=== PATIENT | female | born 1975 | race Caucasian/White ===

== ENCOUNTER → 2020-07-27 15:21 | Outpatient (CLI) | payer OTHER, SELFPAY ==
--- NOTE | ~2020-07-27 | XR_ITS ---
EXAMINATION: XR chest 2V DATE: 07/27/2020 15:32 INDICATION: Cough and fever. TECHNIQUE: Frontal and lateral views of the chest were obtained. COMPARISON: Chest 2 views 03/10/2019 FINDINGS: There are patchy airspace opacities in all right lung zones and in left mid and lower lung zones with a peripheral predominance. No pleural effusion or pneumothorax. The heart size is normal. IMPRESSION: 1. Diffuse lung disease, most likely pneumonia such as COVID-19 pneumonia. Reviewed, dictated and finalized at location A.
== END ==
PROVIDERS: PCP Emergency Medicine; Visit Provider Emergency Medicine
DX: R05 Cough (principal); R50.9 Fever, unspecified; R91.8 Other nonspecific abnormal finding of lung field
CPT/HCPCS: 71046

== ENCOUNTER → 2020-08-10 09:34 | Outpatient (CLI) | payer OTHER, SELFPAY ==
--- NOTE | ~2020-08-10 | XR_ITS ---
EXAMINATION: XR chest 2V DATE: 08/10/2020 09:53 INDICATION: Cough, concern for COVID 19 pneumonia TECHNIQUE: PA and lateral views of the chest are obtained. COMPARISON: 07/17/2020 FINDINGS: There are persistent but decreased airspace opacities of the lung bases. Previously describ ed airspace opacities of the midlung zones and right upper lung zone have resolved. There is no pleur al effusion or pneumothorax. The cardiomediastinal silhouette is normal. There is mild thoracic spond ylosis. IMPRESSION: 1. Improving bilateral airspace opacities consistent with resolving pneumonia. Reviewed, dictated and finalized at location A.
== END ==
PROVIDERS: PCP Emergency Medicine; Visit Provider Emergency Medicine
DX: R05 Cough (principal); J18.9 Pneumonia, unspecified organism
CPT/HCPCS: 71046

== ENCOUNTER → 2020-09-17 12:11 | Outpatient (CLI) | payer OTHER, SELFPAY ==
--- NOTE | ~2020-09-17 | XR_ITS ---
EXAMINATION: XR chest 2V EXAM DATE: 09/17/2020 12:25 INDICATION: Recheck after a month. TECHNIQUE: Frontal and lateral projections of the chest obtained and reviewed. Comparison is made to prior examination from 08/10/2020. FINDINGS: The lungs are clear. There are no pleural effusions. The cardiomediastinal silhouette is within normal limits. There is no pneumothorax suspected. The bones and soft tissues are unremarkab le. IMPRESSION: Unremarkable chest x-ray exam. Reviewed, dictated and finalized at location A. 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
== END ==
PROVIDERS: PCP Emergency Medicine; Visit Provider Emergency Medicine
DX: U07.1 COVID-19 (principal)
CPT/HCPCS: 71046

== ENCOUNTER 2021-02-15 11:42 | Emergency (ER) | payer OTHER, SELFPAY ==
--- NOTE | ~2021-02-15 | XR_ITS ---
EXAMINATION: XR knee LT min 4V DATE: 02/15/2021 12:05 INDICATION: Left knee pain. TECHNIQUE: 5 views of left knee were obtained. COMPARISON: Left knee radiographs 03/25/2019 FINDINGS: Bone alignment is normal. No fracture. There is mild osteoarthritis of medial and patellofe moral compartments characterized by tiny marginal osteophytes. No knee joint effusion. IMPRESSION: 1. Mild left knee osteoarthritis. Reviewed, dictated and finalized at location B.
--- NOTE | 2021-02-15 11:45 | ED.LOWEXIN ---
HPI - Extremity Injury (Lower) General Chief Complaint: Extremity Injury, Lower Stated Complaint: L KNEE INJURY Time Seen by Provider: 02/15/21 11:45 Source: patient and RN notes reviewed History of Present Illness HPI Narrative: Patient is a 45-year-old female who presents the urgent care with complaints of left knee pain. Patient states that earlier this morning she tripped over a concrete parking block and fell onto her left knee. Patient denies hitting her head. Denies of any other injuries from the fall. Denies of any [id number] medication for pain relief. No other acute complaints. No acute distress noted. Patient aware of the plan of care. Some parts of this dictation were generated by voice recognition software and may contain typographical and/or grammatical inaccuracies. Related Data Home Medications Medication Instructions Recorded Confirmed lisinopril 02/15/21 metoprolol succinate PO 02/15/21 Allergies Allergy/AdvReac Type Severity Reaction Status Date / Time No Known Allergies Allergy Unverified 07/26/17 14:53 Review of Systems Review of Systems: Narrative: CONSTITUTIONAL: Denies fever, chills, or sweats. EYES: Denies visual changes, redness, or discharge. ENT: Denies rhinorrhea, congestion, sore throat, or otalgia. CARDIOVASCULAR: Denies chest pain, palpitations, or edema. RESPIRATORY: Denies cough or dyspnea. GASTROINTESTINAL: Denies abdominal pain, nausea, vomiting, or diarrhea. GENITOURINARY: Denies dysuria or hematuria. SKIN: Denies rash or itching. MUSCULOSKELETAL: Denies back pain, joint pain, or myalgia. NEUROLOGIC: Denies headache, numbness, or weakness. All other systems reviewed are negative, except as documented in HPI. [facility]LY [facility], [facility] Family History Family History (Updated 05/26/16 @ 23:21 by DOCTOR UNKNOWN) Mother Patient's mother is in good health, Onset Age: 64 Grandparent Family history of malignant neoplasm of brain, Onset Age: 72 Father Family history of coronary artery disease, Onset Age: 56 Other Family history of malignant neoplasm of ovary Social History Social History Smoking status: Never smoker Alcohol intake: never Comments At the time of my signature, I reviewed and agree with the nursing past medical, surgical, social, and family history. There is no relevant family history pertinent to the patient complaint. Exam Narrative: Exam Narrative: GENERAL: This is a well-nourished, well-developed patient, in no apparent distress. Morbidly obese HEAD: normocephalic, atraumatic. EYES: PERRL. Sclera clear/white. Vision is grossly intact. EARS: External ears normal NOSE: External nose normal with no obvious nasal discharge, nares without redness, no rhinorrhea. THROAT: Mucous membranes moist NECK: Neck supple SKIN: 2 cm circular superficial abrasion noted to the left knee. Warm, intact with no suspicious lesions or rash, good texture and turgor. NEURO: awake, alert, and oriented to person, place and time. There were no obvious focal neurologic abnormalities. EXTREMITIES: No obvious ecchymosis, edema or erythema noted to the left knee. Unable to do a complete range of motion exam due to morbid obesity. Complaints of pain with flexion and weightbearing. Course Vital Signs Vital signs: Vital Signs Temperature 98.7 F 02/15/21 12:07 Pulse Rate 83 02/15/21 12:07 Respiratory Rate 20 02/15/21 12:07 Blood Pressure 149/100 H 02/15/21 12:07 Pulse Oximetry 100 02/15/21 12:07 Temperature 98.7 F 02/15/21 12:07 Pulse Rate 83 02/15/21 12:07 Respiratory Rate 20 02/15/21 12:07 Blood Pressure 149/100 H 02/15/21 12:07 Pulse Oximetry 100 02/15/21 12:07 Reviewed-patient is informed that they may have pre-hypertension or hypertension based on a blood pressure reading in the department. I recommend the patient call the primary care provider listed on their discharge instructions or a physician of their choice this week to arrange fol
[2021-02-15 12:07] VITALS: BP 149/100; PULSE 83; RESP 20; TEMP 37.1; O2SAT 100
== END 2021-02-15 12:30 | disposition home or self-care (01) ==
PROVIDERS: Emergency Provider Nurse Practitioner Family; PCP Emergency Medicine
DX: S80.02XA Contusion of left knee, initial encounter (principal); W18.09XA Striking against other object with subsequent fall, initial encounter; I10 Essential (primary) hypertension
CPT/HCPCS: 73564; 99213; G0463

== ENCOUNTER 2022-02-16 09:23 | Emergency (ER) | payer OTHER, SELFPAY ==
--- NOTE | ~2022-02-16 | XR_ITS ---
EXAMINATION: XR heel LT min 2V DATE: 02/16/2022 09:58 INDICATION: Left heel pain. TECHNIQUE: 2 views of left calcaneus were obtained. COMPARISON: None. FINDINGS: Bone alignment is normal. No fracture. There is mild midfoot osteoarthritis. There are enth esophytes at the posterior and plantar aspects of calcaneal tuberosity. IMPRESSION: 1. No fracture. Reviewed, dictated and finalized at location B. IMPRESSION: 1. No fracture.
[2022-02-16 09:35] VITALS: BP 165/132; PULSE 91; RESP 20; TEMP 37.1; O2SAT 100
--- NOTE | 2022-02-16 09:44 | ED.LOWEXIN ---
HPI - Extremity Injury (Lower) General Chief Complaint: Extremity Injury, Lower Stated Complaint: Heel and shoulder Pain Time Seen by Provider: 02/16/22 09:40 Source: patient Mode of arrival: ambulatory Limitations: no limitations History of Present Illness HPI Narrative: Ms. Montaño is a 46-year-old female patient presented to the clinic today with complaints of chronic right shoulder pain and left heel pain. She reports her shoulder has been bothering her for a couple years as a previous orthopedic provider told her that she probably likely had a tendon tear in her right shoulder. She reports that the right shoulder pain is getting gradually worse especially with movement. She reports the pain is to the front and lateral shoulder and radiates down the arm. States the left heel pain just started 1 to 2 days ago has most pain only when walking. No pain with flexion or extension of the left plantar fascia. Reports her pain is a 7 out of 10 currently. Patient is morbidly obese and it was difficult to get an accurate blood pressure on her. Related Data Allergies Allergy/AdvReac Type Severity Reaction Status Date / Time No Known Allergies Allergy Unverified 02/16/22 09:52 Review of Systems Review of Systems: Pertinent positives per HPI. Patient denies any fever, chills, rash, headache, visual changes, dizziness, cough, runny nose, sore throat, shortness of breath, chest pain, palpitations, nausea, vomiting, diarrhea, constipation, abdominal pain, or any urinary issues. [facility] Family History Family History Mother Patient's mother is in good health, Onset Age: 64 Grandparent Family history of malignant neoplasm of brain, Onset Age: 72 Father Family history of coronary artery disease, Onset Age: 56 Other Family history of malignant neoplasm of ovary Social History Social History Smoking status: Never smoker Alcohol intake: never Comments At the time of my signature, I reviewed and agree with the nursing past medical, surgical, social, and family history. There is no relevant family history pertinent to the patient complaint. Exam Narrative: General: Well-developed, morbidly obese in no apparent distress Head: Normocephalic, atraumatic. Cardio: Regular rate and rhythm, s1 and s2 normal, no murmur appreciated. Resp: Clear to auscultation bilaterally, no rhonchi, rales, wheezing or rubs. Musculoskeletal: Right shoulder: No deformity, tender to palpation over the lateral and anterior shoulder joint, range of motion limited due to pain-is unable to left arm above head, negative drop arm test, pain with empty can and full can testing to the right lateral and anterior shoulder, peripheral pulse strong, no edema, no cyanosis. Left heel: No deformity, tender to palpation over the mid calcaneus, pain only when walking, limping gait and station Course Course Emergency Course: Portions of this record may have been created with voice recognition software. Level of Care: Express Care Visit Vital Signs Vital signs: Vital Signs Temperature 37.1 C 02/16/22 09:35 Pulse Rate 91 02/16/22 09:35 Respiratory Rate 20 02/16/22 09:35 Blood Pressure 165/132 H 02/16/22 09:35 Pulse Oximetry 100 02/16/22 09:35 Temperature 37.1 C 02/16/22 09:35 Pulse Rate 91 02/16/22 09:35 Respiratory Rate 20 02/16/22 09:35 Blood Pressure 165/132 H 02/16/22 09:35 Pulse Oximetry 100 02/16/22 09:35 Vital signs reviewed MDM - Extremity Injury (Lower) MDM Narrative Medical decision making narrative: At the time of assessment patient is resting comfortably in the chair. Having pain with radiation to the right shoulder as well as having pain to the left heel. X-ray was completed to the left heel to rule out a stress fracture and it was negative for any fracture or malalignment. Assessment shows probable
[2022-02-16] MEDS: KETOROLAC (*BKC) 60 MG/2 ML VIAL IM (09:59)
== END 2022-02-16 10:30 | disposition home or self-care (01) ==
PROVIDERS: Emergency Provider Nurse Practitioner Family
DX: M77.8 Other enthesopathies, not elsewhere classified (principal); M79.672 Pain in left foot; E66.01 Morbid (severe) obesity due to excess calories; Z68.44 Body mass index [BMI] 60.0-69.9, adult; I10 Essential (primary) hypertension; K21.9 Gastro-esophageal reflux disease without esophagitis
CPT/HCPCS: 73650; 96372; 99213; A4565; G0463; J1885

== ENCOUNTER 2022-03-21 07:54 | Outpatient (RCR) | payer OTHER, SELFPAY ==
[2022-03-21 08:05] VITALS: BP_SYST 115
--- NOTE | 2022-03-21 09:08 | PTOPEVAL ---
PHYSICAL THERAPY INITIAL EVALUATION. Thank you for referring Fay Montaño to [facility] The patient is scheduled to be seen for therapy? 1-2 x/week for 6 weeks. Please review, sign, date and return this plan of care ESSIE. I agree with and certify that the following plan of care is medically necessary. Referring Physician Date Attending Provider: Vidal Huntley APN *PT Outpatient Evaluation Start: 03/21/22 Evaluation Information Diagnosis R shoulder pain Onset chronic Subjective Information Pt reports chronic R shoulder Query Text:As Reported By Patient/ pain that fluctuates in Family severity over years. The last couple of months her pain has increased without a known reason. She reports the inability to sleep on her R side, raise her hand over her head, or using her arm for an extended period of time. She states she had to stop a take a break while trying to put her daughters hair up the other day. Self Report Pain Assessment Right Shoulder(s) Reported Pain Level 3 Pain Description Aching,Heavy,Throbbing Pain Radiation Right Elbow Pain Frequency Acute,Intermittent Lowest Pain Intensity 3 Greatest Pain Intensity 8 Pain Aggravating Factors Exercise/Activity,Lifting Upper Extremity Range of Motion Scapular/ Shoulder Range of Motion Right Scapular: Retraction Normal Shoulder Flexion - Active 90 Shoulder Flexion - Passive 108 Shoulder Abduction - Active 80 Shoulder Abduction - Passive 115 Shoulder Medial Rotation - Active T9 Shoulder Lateral Rotation - Active R upper trap Scapular/Shoulder Range of Motion L shoulder active flexion 130 Comments L shoulder passive flexion 140 L shoulder active abduction 130 L shoulder passive abduction 145 L shoulder functional medial and lateral rotation: T10, T4 Upper Extremity Muscle Strength Testing Gross Upper Extremity Strength Comments L UE grossly 4/5 Scapular/Shoulder Right Shoulder Flexion Strength 3 Fair Shoulder Abduction Strength 3 Fair Shoulder Medial Rotation Strength 3- Fair - Shoulder Lateral Rotation Strength 3- Fair - Shoulder Strength Comments R shoulder strength likely limited by pain. Facial grimaces before applied
--- NOTE | 2022-03-23 11:52 | PCPTNOTE ---
Patient called & cancelled scheduled appointment this date due to not feeling well.
--- NOTE | 2022-03-28 15:51 | PCPTNOTE ---
Patient called & cancelled scheduled appointment this date due to her car breaking down on the way here.
--- NOTE | 2022-04-03 17:09 | PCPTNOTE ---
Patient did not show up for scheduled appointment this date; Called to leave voicemail for patient unable to due to mailbox being full.
--- NOTE | 2022-04-05 16:54 | PCPTNOTE ---
Attending Provider: Vidal Huntley APN Patient:Fay Montaño Date of :1975 Patient has not returned for any further treatments since 03/21/2022. Patient?s initial visit was on 03/21/2022 and she has returned for a total of 0 visits. She has called and cancelled twice and no call, no showed the last two visit. Per the attendance policy, she will be discharged at this time. Thank you for referring this patient to [facility]. Please review, sign, date and return this discharge summary ESSIE. I have been updated about the patient's current status and I agree with discharge from the above service at this time. Referring Physician Date
--- NOTE | 2022-04-05 16:59 | PCPTNOTE ---
Patient did not show up for scheduled appointment this date; this is patient 3 cancel/no show per policy have notified PT, which patient will be discharged.
== END 2022-04-06 11:38 | disposition home or self-care (01) ==
LOC: ANHPT 07:54
PROVIDERS: PCP Family Medicine; Visit Provider Nurse Practitioner
DX: M25.511 Pain in right shoulder (principal)
CPT/HCPCS: 97110; 97161

== ENCOUNTER 2025-03-03 14:40 | Emergency (ER) | payer BC, SELFPAY ==
--- NOTE | ~2025-03-03 | CT_ITS ---
EXAMINATION: CT abdomen pelvis w con DATE: 03/03/2025 16:20 INDICATION: Left lower quadrant abdominal pain TECHNIQUE: Computed tomography (CT) of the abdomen and pelvis was performed with 100 mL Omnipaque-350 intravenous contrast. Automated exposure control and iterative reconstruction technique were employe d. The dose-length product was 1730.07 mGy-cm. COMPARISON: None FINDINGS: Mild minimal dependent bibasilar atelectasis.. Heart size is normal. No pericardial or pleural effusi on. Liver, gallbladder, spleen, pancreas, bilateral adrenal glands and kidneys are normal. There is m ild scattered diverticulosis with inflammatory stranding surrounding a diverticulum at the distal gabby cending colon consistent with diverticulitis. Small bowel and appendix are normal. Bladder, anteverte d uterus and bilateral adnexa are unremarkable. No abscess or free intraperineal gas or fluid. Modera te-sized fat-containing umbilical hernia. Moderate-sized fat-containing infraumbilical ventral hernia and small fat-containing supraumbilical ventral hernia positioned slightly to the right of midline. Small fat-containing left inguinal hernia. No pathologically enlarged abdominal or pelvic lymphadenop athy. Moderate lumbar and lower thoracic spondylosis with bridging osteophytes at multiple levels in the lower thoracic spine consistent with diffuse idiopathic skeletal hyperostosis (DISH). IMPRESSION: 1. Radiographically uncomplicated diverticulitis at the distal descending colon. 2. Moderate-sized fat-containing umbilical hernia, couple additional small and moderate-sized fat-con taining ventral hernias and small fat-containing left inguinal hernia. Reviewed, dictated and finalized at location A. IMPRESSION: 1. Radiographically uncomplicated diverticulitis at the distal descending colon . 2. Moderate-sized fat-containing umbilical hernia, couple additional small and moderate-sized fat-containing ventral hernias and small fat-containing left ing uinal hernia.
--- OUTSIDE RECORDS SUMMARY | 2025-03-03 14:43 | XMS_ITS | Referral Summary ---
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 Name Role Phone Addi Kemp MD Primary Care Provider [phone] Allergies No known active allergies Medications lisinopriL (PRINIVIL,ZESTRI L) 10 mg tablet Take 1 tablet by mouth daily 12/11/2019 Active metoprolol XL (TOPROL-XL) 25 mg 24 hr tablet Take 1 tablet by mouth daily 12/04/2019 Active Active Problems No known active problems Social History Tobacco Use Types Packs/Day Years Used Date Smoking Tobacco: Never Smokeless Tobacco: Never Alcohol Use Standard Drinks/Week Comments No 0 (1 standard drink = 0.6 oz pur e alcohol) Comments Unknown Sex and Gender Information Value Date Recorded Sex Assigned at Not on file Legal Sex Female 1:04 AM [employer] ANALYST Gender Identity Not on file Sexual Orientation Not on file Last Filed Vital Signs Vital Sign Reading Time Taken Comments Blood Pressure 110/64 12/24/2019 9:57 AM [employer] ANALYST Pulse 94 12/24/2019 9:57 AM [employer] ANALYST Temperature 36.6 C (97.9 F) 05/07/2016 12:39 PM CDT Respiratory Rate - - Oxygen Saturation 97% 12/24/2019 9:57 AM [employer] ANALYST Inhaled Oxygen Concentration - - Weight 171.9 kg (379 lb) 12/24/2019 9:57 AM [employer] ANALYST Height 162.6 cm (5' 4 ) 12/24/2019 9:57 AM [employer] ANALYST Body Mass Index 65.06 12/24/2019 9:57 AM [employer] ANALYST Plan of Treatment Not on file Insurance [employer] Care Teams Agricultural Aircraft Pilot Relationship Specialty Start Date End Date Addi Kemp MD PCP - General Emergency Medicine 12/24/19
--- OUTSIDE RECORDS SUMMARY | 2025-03-03 14:43 | XMS_ITS | Data Portability ---
Author Organization [facility] [place] Address [address] [place] [address] Care Team Providers Care Programmer Analyst Consultant Name Role Phone FRANK MEDINA Referring Provider [phone] Assessment Encounter Date Assessment Date Assessment LastModified by Organization Details LastModified Time 09/17/2020 09/17/2020 Annual gynecological exam performed. Patient will come back in a year unless there are new symptoms. [email or web address] Not available 09/17/2020 12:29:35 Plan of Treatment Reminders Order Date Submit Date Provider Last Modified By Organization Details Last Modified Time Details Appointments None record ed. Lab None record ed. Referral None record ed. Procedures None record ed. Surgeries None record ed. Imaging None record ed. Medication Orders None record ed. Patient TargetsNo targets recorded. Patient Instructions Encounter Date Encounter Id Patient Instructions Last Modified By Organization Details Last Modified Time 09/17/2020 [id number] [email or web address] Not available 12:56:50 Reason for Referral None Reported. Results Created Date Observation Date Name Description Value Unit Range Abnormal Flag Note LastModifiedBy Organization Detail LastModifiedTime 09/17/20 20 09/20/2020 pap, LB Pap test thin prep Negati ve for Intrae pithel ial Lesion or Malign coco normal ACCES ERNST #: [id number] Sourc e: Cervi felix/E ndoce rvica l LMP: 10/29 Date Taken : 09/17 Speci men Type: ThinP rep Vial Date Repor nilson: 09/20 Clini felix Data: Cytot ech: BEENA Lane( CP) Date Repor nilson: 09/20 Speci men Adequ acy: Satis facto ry for evalu ation Endoc ervic al/tr ansfo rmati on zone compo nent prese nt Gener al Categ oriza tion: NEGAT TIA FOR INTRA EPITH ELIAL SPENSER Rios OR DMITRI SPAULDING This speci men has been brianda zed by the ThinP rep Imagi ng Syste m, an inter activ e compu ter syste m which agnes ts the lab in the scree dg of ThinP rep Pap Test slide s. Follo wing imagi ng, the slide was revie wed by a Cytot echno logis t and/o r Patho logis t. D N A A S S A Y S R E P O R T TEST NAME RESUL TS ----- ---- ----- -- HPV High Risk Azael rios (TMA) ThinP rep Vial The human papil lomav irus (HPV) High Risk Azael rios is an FDA-a pprov ed in-vi tro ampli fied nucle ic acid test for the quali tativ e detec tion of E6/E7 viral mRNA. Resul ts dionicio d pratima corre lated with patie nt prese ntati on, histo ry, cervi felix cytol ogy and other clini felix and labor atory findi ngs. See https ://[employer]skills/s [place]/ ayaan lt/fi les/2 018-0 3/AW- 06842 _002_ 01.pd f for furth er infor matcorona n. Test perfo rmed by [facility], d/b/a [facility], [address] , [place] [address] , Gabrielle Griffiths ra, DO, Labor atory Direc tor. HPV High Risk *HPV NOT DETEC NILSON (TYPE S 16, 18, 31, 33, 35, 39, 45, 51, 52, 56, 58, 59, 66, 68) *HPV: The human papil lomav irus (HPV) High Risk Azael rios is an FDA-a pprov ed in-vi tro ampli fied nucle ic acid test for the quali tativ e detec tion of E6/E7 viral mRNA. Resul ts shoul d be corre lated with patie nt prese ntati on, histo ry, cervi felix cytol ogy and other clini felix and labor atory findi ngs. See https ://5skills/s [place]/ ayaan lt/fi les/2 018-0 3/AW- 66841 _002_ 01.pd f for jourdan er madier yo rios. Test [facility]fo rmed by [facility] [employer], [address], [place] [address] , Gabrielle Griffiths ra, DO, Labor atory Direc tor. End of Repor t Techn ical servi christina provi ded by [facility], [address] [place] [address] Ishan Vail MD, Labor ator Dire tor. Case revie wed and diagn osis rende red at [facility] d/b/a [facility], [address] [place] [address] Ishan Vail MD, Labor ator Dire tor. CONFI DENTI AL Not Available [facility] ([facility]) [facility] [address], [place], [address], 09/20/2020 13:59:49 09/17/20 20 09/20/2020 HPV DNA, high- risk HPV high risk NOT DETECT ED normal Not Available [facility] ([facility]) [address] [place] [address], [place], [address], 09/20/2020 13:59:49 Result Notes None recorded. Procedures Surgical History Date Name Laterality Status Provider Name and Address Organization Details Recorded Time Tonsillectomy completed [facility] 09/17/2020 12:31:58 Tubal Ligation completed [facility] 09/17/2020 12:32:02 Imaging Results None recorded. Procedure Notes None recorded. Medical Equipment None Reported. Allergies No known drug allergies Medications Name Sig Start Date Stop Date Status Note LastModified by Organization Details LastModified Time cyclobenzapri ne 10 mg tablet TK 1 T PO Q 8 HOURS. ANDI 09/17 completed Not Available Not Available Not Available cetirizine 10 mg tablet TK 1 T PO QD 09/17 completed Not Available Not Available Not Available azithromycin 250 mg tablet TK 2 TS PO FOR 1 DAY THEN TK 1 T PO D FOR 4 DAYS 09/17 completed Not Available Not Available Not Available ibuprofen 800 mg tablet TK 1 T PO Q 6 H WF 09/17 completed Not Available Not Available Not Available lisinopril 20 mg tablet TAKE 1 TABLET BY MOUTH DAILY active Not Available Not Available No t Available benzonatate 100 mg capsule TK 1 C PO Q 8 H PRN 09/17 completed Not Available Not Available Not Available lisinopril 10 mg tablet active Not Available Not Available No t Available metoprolol succinate ER 25 mg tablet,extend ed release 24 hr 09/17 completed Not Available Not Available Not Available albuterol sulfate HFA 90 mcg/actuation aerosol inhaler INL 2 PFS PO Q 6 H PRN 09/17 completed Not Available Not Available Not Available fluticasone propionate 50 mcg/actuation nasal spray,suspens ion SHAKE LQ AND U 1 SPR IEN BID 09/17 completed Not Available Not Available Not Available Toprol XL active Not Available Not Kayley ilable Not Available Vitals Date Recorded Body height Body mass index (BMI) Body weight Systolic blood pressure Diastolic blood pressure Provider Name and Address Organization Details Last Updated DateTime 09/17/2020 162.56 cm 66.9 kg/m2 178188.0 2 g 160 mm[Hg] 98 mm[Hg] Norma Marcano [facility] 0 12:38:03 Social History None recorded. Functional Status None recorded. Mental Status None recorded. Family History Relationship Description Onset Age of this Age Resolved Age Notes LastModified by Organization Details LastModified Time Mother Asthma [email or web address] Not available 12:31:06 Mother Heart disease [email or web address] Not available 2019 12:31:27 Mother Hypertensive disorder [email or web address] Not available 2019 12:31:45 Father Heart disease [email or web address] Not available 2019 12:31:27 Father Diabetes mellitus [email or web address] Not available 2019 12:31:34 Father Hypertensive disorder [email or web address] Not available 2019 12:31:45 Maternal Grandmother Heart disease [email or web address] Not available 2019 12:31:27 Maternal Grandfather Heart disease [email or web address] Not available 2019 12:31:27 Medical History Condition Response Hypertension Y Gynecological History Statement/Question Response Current Control Method None Date of LMP 09/02/2020 Obstetrics History GPAL:G 0 P 0 0 0 0 Past Encounters Encounter ID Performer Location Encounter Start Date Encounter Closed Date Diagnosis/Indication Diagnosis SNOMED-CT Code Diagnosis ICD10 Code Diagnosis Note [id number] Myrna Hughes , [facility] [address] [address] 09/17/2020 12:22:38 09/17/2020 14:36:20 Gynecologic examination 40889932 Z01.419 Suggested Calcium with Vitamin D 1200-1500m g daily. Patient advised to get an annual flu shot in the fall and she could obtain at [facility] or [facility] care clinic. Also to obtain TDap vaccinatio n if you have not had one in the last 10 years. Recommend yearly mammograms . Encouraged monthly self breast exams. Encourage safe sexual practices, to use condoms and limit partners if not already in a monogamous relationsh ip. Engage in daily exercise of low impact aerobic exercise 45-60 minutes 4-5 times weekly. Avoid tobacco and illicit drugs as well as using moderation with alcohol intake less than 1-2 8 oz beverages daily. This lifestyle behavior pattern will lead to less health conditions and longer life span. If BMI greater than 25 weight watchers or dietary consult advised. All questions have been answered. Patient appears to understand informatio n, but if you have any questions please call or respond to this email. Mammo ordered Last Pap/hpv neg Not currently SA for >1yr No partner No issues or concerns. Has not taken BP meds this AM. Advised to take medication & recheck BP; if still high contact PCP for appt or go to ED if symptomati c. Understand ing verbalized . Health Concerns Section Related Observation LastModified by Organization Detai ls LastModified Time None Recorded Concern Status LastModified by Organization Details LastModified Time None Recorded Advance Directives Directive None Recorded Payers Encounter Date Sequence Insurance Name Policy Number Policy Nicholson Covered Member ID Nicholson Member ID Guarantor Name 09/17/2020 1 [employer]EF[employer] (PPO) Fay Montaño [id number] Fay Montaño Notes Date Note Type Note Provider Name and Address Organization Details Recorded Time 09/17/2020 text/html Annual GYNReport ed bypatient.History: no gynecologic complaints Menstrual cycle:Normal menses Urinary symptoms:No hematuria; No incontinence Vulva:No genital lesion Vagina:Normal vaginal discharge Breast:No breast pain; No breast lump; No nipple discharge Current Contraception:Tuba l ligation; Not sexually active Sexual complaints:No sexual complaints; No pain during intercourse; Normal libido Menopausal Symptoms:No menopausal symptoms; Normal vaginal lubrication Psychological symptoms:No depression; No anxiety; No PMDD Preventive measures:Encourage self breast examination; Encourage regular exercise; Encourage no tobacco use; Encourage regular mammograms starting age 40; Needs to schedule mammogram Myrna Hughes [facility]- [address], [place], [address], [facility] 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 Status 09/17/20 20 1 CLOSED Fetus Data First Name Last Name Admitted to NICU Weight (g) Sex Living Outcome Pediatric Complications Fetus ID Race Codes Race Delivery Type [id number] Primary Connor Calculation Initial Connor Date Initial Exam Date Initial Exam Provider Initial Ultrasound Date Last Menstrual Period Date Ultra Sound Weeks Gestation 0 Eighteen To Twenty Week Connor Update Ultra Sound Date Fundal Height At Umbil Quickening Date Ultra Sound Latest Weeks Gestation Final Connor Confirmed By Final Connor Confirmed Date Final Connor Date Ultra Sound Latest Days Gestation 0 0 Menstrual History Last Menstrual Date Menses Monthly On Bcp Conception Prior Menses Frequency Hcg Plus Date Menarche Onset Age Delivery Information Delivery Date Delivery Type Labor Anesthesia Weeks Gestation Incision Type Labor Labor Length Hrs Delivered By Post Complications Tubal Sterilization Discharge Date Comments 9 Discharge Information Feeding Method Contraceptive Method Maternal HG B and HCT Levels
--- OUTSIDE RECORDS SUMMARY | 2025-03-03 14:43 | XMS_ITS | Clinical Summary ---
Author Organization [facility] Address [facility] [place] [address] Care Team Providers Care Nailing Machine Feeder Name Role Phone Unavailable Primary Care Provider Unavailabl e Social History Tobacco Use Types Packs/Day Years Used Date Smoking Tobacco: Never Assessed Comments Unknown Sex and Gender Information Value Date Recorded Sex Assigned at Not on file Legal Sex Female 8:30 PM CDT Gender Identity Not on file Sexual Orientation Not on file Last Filed Vital Signs Vital Sign Reading Time Taken Comments Blood Pressure 130/76 05/25/2017 8:04 AM CDT Pulse 62 05/25/2017 8:04 AM CDT Temperature - - Respiratory Rate - - Oxygen Saturation - - Inhaled Oxygen Concentration - - Weight 142.9 kg (315 lb) 05/25/2017 8:04 AM CDT Height 162.6 cm (5' 4 ) 05/25/2017 8:04 AM CDT Body Mass Index 54.07 05/25/2017 8:04 AM CDT Plan of Treatment Health Maintenance Due Date Last Done Comments Cervical Cancer Screening Pa p Smear (Age 30 to 64) Every 3 Years 1977 Colorectal Cancer Screening Colonoscopy (10 Years) 1977 Annual Physical 1980 Hepatitis C 1995 DTaP, Tdap and Td Vaccines ( 1 - Tdap) 1996 Hepatitis B Vaccines (1 of 3 - 19+ 3-dose series) 1996 Cervical Cancer Screening Pa p with HPV Testing (Age 30 to 64) Every 5 Years 2007 Cervical Cancer Screening with HPV 2007 Mammogram Screening 2017 COVID-19 Vaccine (2023-2 5 season) 2024 Meningococcal B Vaccine Aged Out No l onger eligible based on patient's age to complete this topic Meningococcal Vaccine Aged Out No erika anthony eligible based on patient's age to complete this topic Pneumococcal Vaccine: Pediat rics (0 to 5 Years) and At-Risk Patients (6 to 49 Years) Aged Out No longer eligible b ased on patient's age to complete this topic RSV Immunizations Under 20 Months Aged Out No longer eligible based on patient's age to complete this topic
--- OUTSIDE RECORDS SUMMARY | 2025-03-03 14:43 | XMS_ITS | Data Portability ---
[facility] Address [address] [place] [address] Assessment No assessment recorded. Plan of Treatment Reminders Order Date Submit Date Provider Last Modified By Organization Details Last Modified Time Details Appointments None recorded. Lab vitamin B12, serum 2015 016 bene [facility], [address], [address], [place], [address], 6 16:22:15 CMP, serum or plasma 2014 015 [email or web address] [facility], [address], [address], [place], [address], 5 09:53:58 HbA1c (hemoglobi n A1c), blood 2014 015 [email or web address] [facility], [address], [address], [place], [address], 5 09:53:58 glucose tolerance test, post-75G, 3 specimens 2014 015 LOBO [facility], [address], [address], [place], [address], 6 08:34:31 vitamin B12 + folate, serum or blood 2014 015 LOBO [facility], [address], [address], [place], [address], 6 08:34:32 Referral None recorded. Procedures None recorded. Surgeries None recorded. Imaging x-ray, leg 2014 015 [facility] ([facility]), [address] [place], [address], 5 15:15:22 electromyo gram/nerve conduction study 2014 015 [facility] ([facility]), [address] [place], [address], 5 23:28:25 Medication Orders gabapentin 300 mg capsule 2015 016 [facility] #[id number], [address], [place], [place], [id number], 6 16:21:48 cyanocobal roberts (vit B-12) 1,000 mcg tablet 2015 016 [facility] #[id number], [address], [place], [place], [id number], 6 16:21:48 Robaxin 500 mg tablet 2014 015 [facility] #[id number], [address], [place], [place], [id number], 5 13:37:16 Patient TargetsNo targets recorded. Patient Instructions Encounter Date Encounter Id Patient Instructions Last Modified By Organization Details Last Modified Time 12/02/2015 [id number] When You Want to Lose Weight: Care Instructions [facility] Not available 12/02/2015 16:21:48 Reason for Referral None Reported. Results Created Date Observation Date Name Description Value Unit Range Abnormal Flag Note LastModifiedBy Organization Detail LastModifiedTime 12/01/19 16 12/02/2015 CMP, serum or plasm a glucose, serum 84 mg/dL 65-99 Not Available [facility] ([facility]) [address], [place], [address], 12/02/2015 08:34:31 12/01/19 16 12/02/2015 CMP, serum or plasm a BUN 14 mg/dL 6-20 Not Available [facility] ([facility]) [address] [facility] [place], [address], 12/02/2015 08:34:31 12/01/19 16 12/02/2015 CMP, serum or plasm a creatinine, serum 0.77 mg/dL 0.57-1 .00 Not Available [facility] ([facility]) [address] [facility] [place], [address], 12/02/2015 08:34:31 12/01/19 16 12/02/2015 CMP, serum or plasm a eGFR if nonafricn AM 98 mL/mi n/1.7 3 >59 Not Available [facility] ([facility]) [address] [facility] [place], [address], 12/02/2015 08:34:31 12/01/19 16 12/02/2015 CMP, serum or plasm a eGFR if africn AM 113 mL/mi n/1.7 3 >59 Not Available [facility] ([facility]) [address] [facility] [place], [address], 12/02/2015 08:34:31 12/01/19 16 12/02/2015 CMP, serum or plasm a BUN/creatini ne ratio 18 8-20 Not Available [facility] ([facility]) [address] [facility] [place], [address], 12/02/2015 08:34:31 12/01/19 16 12/02/2015 CMP, serum or plasm a sodium, serum 140 mmol/ L 134-14 4 Not Available [facility] ([facility]) [address] [facility] [place], [address], 12/02/2015 08:34:31 12/01/19 16 12/02/2015 CMP, serum or plasm a potassium, serum 4.4 mmol/ L 3.5-5. 2 Not Available [facility] ([facility]) [address] [facility] [place], [address], 12/02/2015 08:34:31 12/01/19 16 12/02/2015 CMP, serum or plasm a chloride, serum 104 mmol/ L 97-108 Not Available [facility] ([facility]) [address] [facility] [place], [address], 12/02/2015 08:34:31 12/01/19 16 12/02/2015 CMP, serum or plasm a carbon dioxide, total 23 mmol/ L 18-29 Not Available [facility] ([facility]) [address] [facility] [place], [address], 12/02/2015 08:34:31 12/01/19 16 12/02/2015 CMP, serum or plasm a calcium, serum 8.7 mg/dL 8.7-10 .2 Not Available [facility] ([facility]) [address] [facility] [place], [address], 12/02/2015 08:34:31 12/01/1912/02/2015 CMP, serum or plasm a protein, total, serum 6.8 g/dL 6.0-8. 5 Not Available [facility] ([facility]) [address] [facility] [place], [address], 12/02/2015 08:34:31 12/01/1912/02/2015 CMP, serum or plasm a albumin, serum 3.7 g/dL 3.5-5. 5 Not Available [facility] ([facility]) [address] [facility] [place], [address], 12/02/2015 08:34:31 12/01/1912/02/2015 CMP, serum or plasm a globulin, total 3.1 g/dL 1.5-4. 5 Not Available [facility] ([facility]) [address] [facility] [place], [address], 12/02/2015 08:34:31 12/01/19 16 12/02/2015 CMP, serum or plasm a A/G ratio 1.2 1.1-2. 5 Not Available [facility] ([facility]) [address] [facility] [place], [address], 12/02/2015 08:34:31 12/01/19 16 12/02/2015 CMP, serum or plasm a bilirubin, total 0.4 mg/dL 0.0-1. 2 Not Available [facility] ([facility]) [address] [facility], [place], [address], 12/02/2015 08:34:31 12/01/1912/02/2015 CMP, serum or plasm a alkaline phosphatase, S 81 IU/L 39-117 Not Available [facility] ([facility]) [address] [facility] [address] [facility] [address], [place], [address], 12/02/2015 08:34:31 12/01/1912/02/2015 CMP, serum or plasm a AST (SGOT) 9 IU/L 0-40 Not Available [facility] ([facility]) [address] [place], [address], 12/02/2015 08:34:31 12/01/1912/02/2015 CMP, serum or plasm a ALT (SGPT) 10 IU/L 0-32 Not Available [facility] ([facility]) [address] [place], [address], 12/02/2015 08:34:31 12/01/1912/02/2015 gluco se gilmer ance test, post- 75G, 3 speci mens glucose, fasting 76 mg/dL 65-99 LOUISE IFIED BY REANNA Valencia RONALD SIS Not Available [facility] ([facility]) [address] [place], [address], 12/02/2015 08:34:31 12/01/1912/02/2015 gluco se gilmer ance test, post- 75G, 3 speci mens glucose, 1/2 hour TNP TEST NOT PERFO RMED Not Available [facility] ([facility]) [address] [place], [address], 12/02/2015 08:34:31 12/01/19 16 12/02/2015 gluco se gilmer ance test, post- 75G, 3 speci mens glucose, 1 hour 73 mg/dL 65-199 LOUISE IFIED BY REPEA T RONALD SIS Not Available [facility] ([facility]) [address] [place], [address], 12/02/2015 08:34:31 12/01/19 16 12/02/2015 gluco se gilmer ance test, post- 75G, 3 speci mens glucose, 1 1/2 hour TNP TEST NOT PERFO RMED Not Available [facility] ([facility]) [address] [place], [address], 12/02/2015 08:34:31 12/01/19 16 12/02/2015 gluco se gilmer ance test, post- 75G, 3 speci mens glucose, 2 hour 53 mg/dL 65-139 below low normal LOUISE IFIED BY REPEA T RONALD SIS Not Available [facility] ([facility]) [address] [place], [address], 12/02/2015 08:34:31 12/01/19 16 12/02/2015 gluco se gilmer ance test, post- 75G, 3 speci mens glucose, 3 hour TNP TEST NOT PERFO RMED Not Available [facility] ([facility]) [address] [place], [address], 12/02/2015 08:34:31 12/01/19 16 12/02/2015 gluco se gilmer ance test, post- 75G, 3 speci mens glucose, 4 hour TNP TEST NOT PERFO RMED Not Available [facility] ([facility]) [address] [place], [address], 12/02/2015 08:34:31 12/01/19 16 12/02/2015 gluco se gilmer ance test, post- 75G, 3 speci mens glucose, 5 hour TNP TEST NOT PERFO RMED Not Available [facility] ([facility]) [address] [facility] [place], [address], 12/02/2015 08:34:31 12/01/19 16 12/02/2015 gluco se gilmer ance test, post- 75G, 3 speci mens glucose, 6 hour TNP TEST NOT PERFO RMED Not Available [facility] ([facility]) [address] [facility] [place], [address], 12/02/2015 08:34:31 12/01/19 16 12/02/2015 vitam in B12 + folat e, serum or blood vitamin B12 199 pg/mL 211-94 6 below low normal Not Available [facility] ([facility]) [address] [facility], [place], [address], 12/02/2015 08:34:32 12/01/1912/02/2015 vitam in B12 + folat e, serum or blood folate (folic acid), serum 6.3 NG/mL >3.0 A SERUM FOLAT E JONAH NTRAT ION OF LESS THAN 3.1 NG/ML IS CONSI DERED TO REPRE SENT CLINI FELIX DEFIC IENCY . Not Available [facility] ([facility]) [address], [place], [address], 12/02/2015 08:34:32 12/01/1912/02/2015 HbA1c (hemo globi n A1c), blood hemoglobin A1C 5.4 % 4.8-5. 6 PRE-D IABET ES: 5.7 - 6.4 DIABE HTUY: >6.4 GLYCE ALICIA CONTR OL FOR ADULT S WITH DIABE THUY: <7.0 Not Available [facility] ([facility]) [address] [place], [address], 12/02/2015 08:34:33 09/14/20 15 09/14/2015 imagi ng/di agnos tic resul t No observ ation record ed. [facility] (Imaging) [address] [place], [address], 12/02/2015 16:13:43 09/30/20 15 09/30/2015 elect romyo gram/ nerve condu ction study No observ ation record ed. [facility] ([facility]aging) [address] [place], [address], 12/02/2015 16:13:43 12/01/19 16 12/01/2015 imagi ng/di agnos tic resul t No observ ation record ed. [facility] (Imaging) [address] [place], [address], 12/02/2015 16:13:44 01/18/20 16 01/16/2016 imagi ng/di agnos tic resul t No observ ation record ed. [facility] [address] [place], [address], 01/18/2016 11:27:39 03/29/20 16 03/29/2016 x-ray , chest , 2 view No observ ation record ed. [facility] (Imaging) [address] [place], [address], 04/14/2016 15:41:53 03/29/20 16 03/29/2016 x-ray , chest No observ ation record ed. [facility] (Imaging) [address] [place], [address], 04/14/2016 15:41:29 04/03/20 16 04/03/2016 x-ray , chest , 2 view No observ ation record ed. [facility] (Imaging) [address] [place], [address], 04/14/2016 15:38:56 01/18/20 17 01/16/2017 CT, abdom en + pelvi s, w/ contr ast No observ ation record ed. [email or web address] (Imaging) [address] [place], [address], 03/19/2017 11:09:29 01/19/20 17 01/16/2017 imagi ng/di agnos tic resul t No observ ation record ed. [address] (Imaging) [address] [place], [address], 03/19/2017 11:09:56 04/13/20 17 04/13/2017 XR, cervi felix spine , 4 or 5 view No observ ation record ed. [address] (Imaging) [address] [place], [address], 04/16/2017 15:43:12 04/13/20 17 04/13/2017 XR, shoul elidia No observ ation record ed. [address] (Imaging) [address] [place], [address], 04/16/2017 15:42:35 12/03/19 20 12/02/2019 XR, chest No observ ation record ed. [facility] (Imaging) [address] [place], [address], 12/05/2019 12:15:51 12/03/19 20 12/03/2019 NM, myoca rdial perfu latha scan, w/ stres s No observ ation record ed. [facility] (Imaging) [address] [place], [address], 12/04/2019 17:09:49 06/27/20 20 06/27/2020 XR, chest No observ ation record ed. [facility] (Imaging) [address] [place], [address], 06/28/2020 10:54:45 04/13/20 21 04/13/2021 CT, abdom en + pelvi s, w/o contr ast No observ ation record ed. [facility] ([facility]) [address] [place], [address], 04/13/2021 15:57:48 Result Notes None recorded. Problems Name Problem SNOMED Code Status Onset Date Resolution Date Notes Provider Name and Address Organization Details Recorded Time Pain in left lower limb 034193928 Active Not Available [facility] 10:26:57 Chronic sciatica 570437879 Active Not Available [facility] 10:26:57 Vitamin B12 level below reference range 608983330 Active Not Available [facility] 10:26:57 Morbid obesity 763353908 Active Not Available [facility] 10:26:57 Chronic low back pain 404028489 Active Not Available [facility] 10:26:57 Problem Notes None recorded. Procedures Surgical History Date Name Laterality Status Provider Name and Address Organization Details Recorded Time 04/28/20 14 Screening pap smear by phys completed Ruiz Naranjo MA [facility] 09/09/2015 13:23:46 10/29/19 13 Mammogram screening completed Ruiz Naranjo MA [facility] 09/09/2015 13:23:46 Cholecystectomy completed Ruiz Naranjo MA [facility] 09/09/2015 13:23:46 Tubal Ligation completed KIM Villafana [facility] 09/09/2015 13:23:46 Caesarean Section completed Ruiz Naranjo MA [facility] 09/09/2015 13:23:46 Imaging Results Imaging Date Name Status LastModified by Organiz ation Details LastModified Time 09/14/2015 imaging/diagnos tic result completed [facility] (Imaging) [address] [place], [address], 12/02/2015 16:13:43 09/30/2015 electromyogram/ nerve conduction study completed [facility] ([facility]aging) [address] [place], [address], 12/02/2015 16:13:43 12/01/2015 imaging/diagnos tic result completed [facility] (Imaging) [address] [place], [address], 12/02/2015 16:13:44 01/16/2016 imaging/diagnos tic result completed [facility] [address] [place], [address], 01/18/2016 11:27:39 03/29/2016 x-ray, chest, 2 view completed [facility] (Imaging) [address] [place], [address], 04/14/2016 15:41:53 03/29/2016 x-ray, chest completed [facility] (Imaging) [address] [place], [address], 04/14/2016 15:41:29 04/03/2016 x-ray, chest, 2 view completed [facility] (Imaging) [address] [place], [address], 04/14/2016 15:38:56 01/16/2017 CT, abdomen + pelvis, w/ contrast completed [address] (Imaging) [address] [place], [address], 03/19/2017 11:09:29 01/16/2017 imaging/diagnos tic result completed [address] (Imaging) [address] [place], [address], 03/19/2017 11:09:56 04/13/2017 XR, cervical spine, 4 or [address] view [address] (Imaging) [address] [place], [address], 04/16/2017 15:43:12 04/13/2017 XR, shoulder completed [address] (Imaging) [address] [place], [address], 04/16/2017 15:42:35 12/02/2019 XR, chest completed [facility] (Imaging) [address] [place], [address], 12/05/2019 12:15:51 12/03/2019 NM, myocardial perfusion scan, w/ stress completed [facility] (Imaging) [address] [place], [address], 12/04/2019 17:09:49 06/27/2020 XR, chest completed [facility] (Imaging) [address] [place], [address], 06/28/2020 10:54:45 04/13/2021 CT, abdomen + pelvis, w/o contrast completed [facility] ([facility]) [address] [place], [address], 04/13/2021 15:57:48 Procedure Notes None recorded. Medical Equipment None Reported. Allergies No known drug allergies Medications Name Sig Start Date Stop Date Status Note LastModified by Organization Details LastModified Time cyanocobalamin (vit B-12) 1,000 mcg tablet Take 1 tablet every day by oral route for 90 days. 2015 active Not Available Not Available Not Avai lable Robaxin 500 mg tablet Take 2 tablets 3 times a day by oral route as needed for 30 days. 2014 active Not Available Not Available Not Avai lable gabapentin 300 mg capsule Take 1 capsule 3 times a day by oral route for 30 days. 2015 active Not Available Not Available Not Avai lable Vitals Date Recorded Body weight Oxygen saturation Oxygen saturation in Arterial blood by Pulse oximetry Body height Body mass index (BMI) Body temperature Heart rate Systolic blood pressure Diastolic blood pressure Provider Name and Address Organization Details Last Updated DateTime 5 566694. 48561 g 99 % 99 % 160.02 cm 52.4 kg/m2 98.5 [degF] 77 /min 116 mm[Hg] 72 mm[Hg] Ruiz Naranjo MA MD - [facility] 5 13:23:46 Date Recorded Body mass index (BMI) Heart rate Body weight Oxygen saturation Oxygen saturation in Arterial blood by Pulse oximetry Body height Body temperature Systolic blood pressure Diastolic blood pressure Provider Name and Address Organization Details Last Updated DateTime 6 54 kg/m2 78 /min 276473. 610332 g 98 % 98 % 160.02 cm 98.7 [degF] 134 mm[Hg] 78 mm[Hg] Ruiz Naranjo MA [facility] 6 15:50:10 Social History Question Answer Notes LastModified by Organization D etails LastModified Time What Is Your Level Of Alcohol Consumption? None Information not available 09/09/2015 Sex: Unknown Functional Status None recorded. Mental Status None recorded. Family History Relationship Description Onset Age of this Age Resolved Age Notes LastModified by Organization Details LastModified Time Mother Asthma Not available 09/09/2015 13:23:46 Mother Depressive disorder [email or web address] Not available 09/09 13:23:46 Mother Heart disease [email or web address] Not available 09/09 13:23:46 Mother Hypertensive disorder [email or web address] Not available 09/09 13:23:46 Father Diabetes mellitus [email or web address] Not available 09/09 13:23:46 Father Heart disease [email or web address] Not available 09/09 13:23:46 Father Hypertensive disorder [email or web address] Not available 09/09 13:23:46 Medical History No medical history recorded. Gynecological HistoryNo gynecological history recorded. Obstetrics History GPAL:G 0 P 0 0 0 0 Past Encounters Encounter ID Performer Location Encounter Start Date Encounter Closed Date Diagnosis/Indication Diagnosis SNOMED-CT Code Diagnosis ICD10 Code Diagnosis Note [id number] MD Brandon Flor (Adult Med) [address] [place] [phone] 09/09/2015 12:21:21 09/09/2015 13:41:29 Pain in left lower limb 793595843 M79.605 [id number] MD Brandon Flor (Adult Med) [address] [place] [phone] 12/02/2015 15:19:34 12/02/2015 17:49:18 Chronic sciatica 991249920 M54.32 Vitamin B1 2 level below reference range 357362396 R79.9 Morbid obesity 085328063 E66.01 Chronic low back pain 27 5704670 M54.5 Health Concerns Section Related Observation LastModified by Organization Detai ls LastModified Time None Recorded Concern Status LastModified by Organization Details LastModified Time None Recorded Advance Directives Directive None Recorded Payers Encounter Date Sequence Insurance Name Policy Number Policy Nicholson Covered Member ID Nicholson Member ID Guarantor Name 09/09/2015 1 [facility] (MEDICARE REPLACEMENT HMO) Fay Montaño [id number] Fay Montaño 12/02/2015 1 [facility] PRIOR TO 04/28/2021 (MEDICAID REPLACEMENT - HMO) Fay Montaño [id number] Fay Montaño Notes Date Note Type Note Provider Name and Address Organization Details Recorded Time 09/09/2015 text/html Left leg pain , constantly for few months, no injury , not diabetic , 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 Alfreda Bravo MD Attn: Accounting,[address] [place], [address], [facility] 09/09/2015 13:37:57 12/02/2015 text/html F/U visit and review of tests. Her lower back pain is getting better. She wants to go back to regular duty tomorrow without restriction. Alfreda Bravo MD Attn: Accounting,[address] [place], [address], [facility] 12/02/2015 16:22:26 OBGyn Episode No OBEpisode recorded.
--- OUTSIDE RECORDS SUMMARY | 2025-03-03 14:43 | XMS_ITS | CONTINUITY OF CARE DOCUMENT ---
Author Name quangyeimi quangyeimi Address Unknown Organization [facility] Address [address] [place] [address] Phone [phone] Care Team Providers Care Model Builder Display Name Role Phone Janes Land MD Unavailable [phone] FRANK MEDINA MD Unavailable [phone] FRANK MEDINA MD Unavailable [phone] PROBLEMS Condition Status Date Provider Notes Other symptoms involving cardiovascular system completed - Janes Land MD Palpitations active Janes Land MD Malignant essential hypertension active Janes Land MD Obesity active Janes Land MD PVC's active Janes Land MD Gallstones active Janes Land MD LOI active Janes Land MD SVT active Janes Land MD ENCOUNTERS Date Type Provider Location Encounter Diag nosis - In-person encounter Office Visit Janes Land MD [facility] SVT - In-person encounter Office Visit Janes Ladn MD [facility] Other symptoms involving cardiovascular systemOSA - In-person encounter Office Visit Janes Land MD [facility] Gallstones - In-person encounter Office Visit Janes Land MD [facility] PalpitationsMalignant essential hypertensionObesityPVC's VITAL SIGNS Date Observation Value Provider Body Mass Index (Ratio) 52.86 kg/m2 Kaleb gibbs Katie blood pressure, resting Yes Janes Land MD blood pressure, diastolic, left arm 97 mm [Hg] Maye Vicente blood pressure, systolic, left arm 152 mm [Hg] Maye Vicente blood pressure, diastolic, right arm 94 m m[Hg] Maye Vicente blood pressure, systolic, right arm 137 m m[Hg] Maye Vicente blood pressure, cuff size regular Ny shaheen Vicente blood pressure, diastolic 97 mm[Hg] [facility], systolic 152 mm[Hg] Rosalva gibbonsa Vicente oxygen saturation, oximetry 98 % [facility] [place] respiratory rate E&M 16 /min [facility] [place] pulse rate 57 /min [facility] [place] weight E&M 308 [lb_av] [facility] [place] height E&M 64 [in_i] [facility] [place] blood pressure, diastolic, left arm 85 mm [Hg] [facility] [place] blood pressure, systolic, left arm 138 mm [Hg] [facility] [place] blood pressure, diastolic, right arm 97 m m[Hg] Maye Vicente blood pressure, systolic, right arm 130 m m[Hg] [facility] [place] blood pressure, diastolic 85 mm[Hg] Ny shaheen Vicente blood pressure, systolic 138 mm[Hg] Rosalva yosef Vicente pulse rate 83 /min [facility] [place] oxygen saturation, oximetry 98 % [facility] [place] respiratory rate E&M 15 /min [facility] [place] Body Mass Index (Ratio) 50.97 kg/m2 [facility] weight E&M 297 [lb_av] [facility] [place] blood pressure, diastolic 92 mm[Hg] Ben Guan blood pressure, systolic 130 mm[Hg] Diana Guan Body Mass Index (Ratio) 52.18 kg/m2 Vivien Guan pulse rate 79 /min Viola arevalo oxygen saturation, oximetry 96 % Viola Guan respiratory rate E&M 18 /min Yokasta Guan weight E&M 304 [lb_av] Viola arevalo Body Mass Index (Ratio) 55.09 kg/m2 Anea chad [facility] blood pressure, diastolic, left arm 112 m m[Hg] Aneatris [facility] blood pressure, systolic, left arm 161 mm [Hg] Aneatris [facility] blood pressure, diastolic, right arm 108 mm[Hg] Aneatris [facility] blood pressure, systolic, right arm 156 m m[Hg] Aneatris [facility] blood pressure, diastolic 112 mm[Hg] An eatris [facility] blood pressure, systolic 161 mm[Hg] Ane atris [facility] pulse rate 94 /min Aneatris [facility] oxygen saturation, oximetry 98 % Aneatris [facility] respiratory rate E&M 17 /min Aneatri s [facility] weight E&M 321 [lb_av] Aneatris [facility] height E&M 64 [in_i] [facility] ALLERGIES No Known Drug Allergies HISTORY OF MEDICATION USE Medication Status Instructions Dates Provider Indications Com ments PEPCID 20 MG ORAL TABLET completed ONE TAB.TWICE DAILY - Maye Vicente METOPROLOL SUCCINATE ER 200 MG ORAL TABLET EXTENDED RELEASE 24 HOUR active One tab once daily Janes Land MD SOCIAL HISTORY Date Observation Value Provider social history reviewed E&M revi ewed - no changes required Janes Land MD social history E&M Smoking Histo ry: Omar lidia has never smoked. Janes Land MD smoking status Never smoker Maye matos social history E&M Smoking Histo ry: Omar atsergio has never smoked. Janes Land MD social history reviewed E&M dm ewed - no changes required Janes Land MD smoking status Never smoker Maye matos social history reviewed E&M dm ewed - no changes required Janes Land MD smoking status Never smoker Viola Carpenter social history E&M Patient has n ever smoked. Smoking History: P lidia has never smoked. Janes Land MD social history reviewed E&M dm ewed - no changes required Janes Land MD smoking status Never smoker Jnaes Meeks FAMILY HISTORY Family Member Condition Father Family History of Co ronary Artery Disease: Mother Family History of Co ronary Artery Disease: INSURANCE PROVIDERS Payer name Policy type / Coverage type [place] red green party ID CIGNA\[facility] [employer] [id number] TREATMENT PLAN Date Name Performer Cardiology:She state s that BP is usually controlled. BP today: 152/97 P rior BP: 138/85 (09/20/2015) Her updated medication list for this problem includes: Metoprolol Succinate 200 Mg Tb24 (Metoprolol succinate) ..... One tab once daily Janes Land MD Cardiology:She canno t tolerate her CPAP. Will obtain a f/u sleep study with possible referral for mandibular device. Janes Land MD Cardiology:Still has occasional palpitations. EKG shows frequent PVC's. Janes Land MD Cardiology:BP today: 138/85 P rior BP: 130/92 (03/29/2015) Her updated medication list for this problem includes: Metoprolol Succinate 200 Mg Tb24 (Metoprolol succinate) ..... One tab once daily Janes Land MD Cardiology:She underwent cholecy stectomy. Janes Land MD Cardiology:Does not complain of palpitations. Well controlled with Metoprolol. Janes Land MD fu: H er updated medication list for this problem includes: Toprol Xl 100 Mg Tb24 (Metoprolol succinate) ..... One tab daily BP today: 130/92 P rior BP: 161/112 (02/15/2015) Janes Land MD Date Name Complete Echo Sleep Study Home Gallbladder Ultrasou nd Renal Artery Duplex Mobile Cardiac Tele Complete Echo STR - Nuclear HISTORY OF PROCEDURES Procedure Date Procedure Name Provider Procedure Notes S tatus EKG Janes Land MD completed SNOMED-CT: [id number] Current Medications Documented Janes Land MD completed SNOMED-CT: [id number] Current Medications Documented Janes Land MD completed EKG Janes Land MD completed
--- OUTSIDE RECORDS SUMMARY | 2025-03-03 14:43 | XMS_ITS | Clinical Summary ---
Author Organization [facility] [address] Address [address] [place] [address] Care Team Providers Care Field Court Researcher Name Role Phone Addi Kemp MD Primary Care Provider [phone] Allergies No known active allergies Medications lisinopriL (PRINIVIL,ZESTRI L) 10 mg tablet Take 1 tablet by mouth daily 12/11/2019 Active metoprolol XL (TOPROL-XL) 25 mg 24 hr tablet Take 1 tablet by mouth daily 12/04/2019 Active Active Problems No known active problems Surgical History Surgery Date Site/Laterality Comments SECTION TONSILLECTOMY CHOLECYSTECTOMY TUBAL LIGATION Medical History Medical History Date Comments Hx Other Medical Arrhythmias (PS VT; PAT) Hx Other Medical Obesity, Morbid Hypertension Hypertension Acid indigestion Family History Medical History Relation Name Comments Other Father cardiac arrythm ia; Cause of : cardiac arrythmia cardiac arrest Father Other Mother a-fib; Relation Name Status Comments Brother Alive Father (Age 56) Mother Alive Social History Tobacco Use Types Packs/Day Years Used Date Smoking Tobacco: Never Smokeless Tobacco: Never Alcohol Use Standard Drinks/Week Comments No 0 (1 standard drink = 0.6 oz pur e alcohol) Comments Unknown Sex and Gender Information Value Date Recorded Sex Assigned at Not on file Legal Sex Female 1:04 AM GOVERNMENT AFFAIRS FELLOW Gender Identity Not on file Sexual Orientation Not on file Obstetrics History Last Filed Vital Signs Vital Sign Reading Time Taken Comments Blood Pressure 110/64 12/24/2019 9:57 AM GOVERNMENT AFFAIRS FELLOW Pulse 94 12/24/2019 9:57 AM GOVERNMENT AFFAIRS FELLOW Temperature 36.6 C (97.9 F) 05/07/2016 12:39 PM CDT Respiratory Rate - - Oxygen Saturation 97% 12/24/2019 9:57 AM GOVERNMENT AFFAIRS FELLOW Inhaled Oxygen Concentration - - Weight 171.9 kg (379 lb) 12/24/2019 9:57 AM GOVERNMENT AFFAIRS FELLOW Height 162.6 cm (5' 4 ) 12/24/2019 9:57 AM GOVERNMENT AFFAIRS FELLOW Body Mass Index 65.06 12/24/2019 9:57 AM GOVERNMENT AFFAIRS FELLOW Plan of Treatment Not on file Insurance [employer] Care Teams Field Court Researcher Relationship Specialty Start Date End Date Addi Kemp MD PCP - General Emergency Medicine 12/24/19
[2025-03-03 15:00] VITALS: BP 107/46; PULSE 92; RESP 18; TEMP 36.6; O2SAT 98
[2025-03-03 15:41] LABS: BEDSIDEPREGUCG Negative (Negative)
--- NOTE | 2025-03-03 15:43 | ED_ITS ---
HPI - Abdominal Pain General Chief Complaint: Abdominal Pain Stated Complaint: LLQ abd pain x today Time Seen by Provider: 03/03/25 15:39 History of Present Illness HPI narrative: Pt presents with LLQ abdominal pain since this morning. Pt says is worse when she moves. Pt denies fever or bloody stools. Pt has loose stools sicne gb removed so this is no different. Pt denies nause or vomiting. Pt has no history of diverticulitis. Related Data Allergies Allergy/AdvReac Type Severity Reaction Status Date / Time No Known Allergies Allergy Verified 03/03/25 14:41 Review of Systems 2 Review of Systems: All systems reviewed & are unremarkable except as noted in HPI and below PMFSH Past Medical History Medical History (Updated 03/03/25 @ 17:40 by Hai Nix MD) Fecal urgency Depression Encounter for screening colonoscopy Screening for breast cancer Restless legs Pain in both thighs Breast cancer screening Cyst of joint of left hand Cyst in hand B12 deficiency Dyslipidemia Screening for diabetes mellitus Acute bronchitis BMI 50.0-59.9, adult Rosacea Hyperpigmentation of skin COVID-19 positive 07/08/22 Encounter to establish care Sleep apnea Snoring Irregular heartbeat Urinary frequency Morbid obesity with BMI of 60.0-69.9, adult Wellness examination Hypertension Surgical History Surgical History History of cholecystectomy History of Family History Family History Mother Patient's mother is in good health, Onset Age: 64 Grandparent Family history of malignant neoplasm of brain, Onset Age: 72 Father Family history of coronary artery disease, Onset Age: 56 Other Asthma Depression Family history of malignant neoplasm of ovary Hypertension Social History Social History Smoking status: Never smoker Alcohol intake: current Alcohol use details: wine cooler on occasion Substance use: never Substance use type: does not use Lack of Transportation: No Lack of Food: Never True Current Housing: I Have Housing Concerned About Future Housing: No Difficulty Paying Gas/Electric Bills: No Difficulty Paying for Meds: No Currently Unemployed: No Education: Trade/Vocational Certificate Difficulty w/ Childcare or Family Care: No Living arrangements: with family Exam 2 Const: General: healthy appearing and no acute distress Nutritional Appearance: well nourished Orientation/consciousness: patient oriented x3 Limitations: no limitations Resp: Effort & Inspection: normal respiratory effort Auscultation: clear to auscultation bilaterally Cardio: Rate: regular rate Rhythm: regular rhythm GI: GI Palp: Yes Soft to palpation and Yes Tenderness to palpation present (GI) (llq) Auscultation: normal bowel sounds Skin: General skin exam: normal color Rashes: no rashes Wounds: no wounds Neuro: General: patient oriented x3, moves all extremities, no meningeal signs and no focal motor deficits Speech: normal speech Extrem: General: no clubbing, cyanosis or edema Psych: Mental Status: mental status grossly normal Affect: normal affect Attitude: cooperative Course Vital Signs Vital signs: Vital Signs Temperature 97.9 F 03/03/25 15:00 Pulse Rate 92 03/03/25 15:00 Respiratory Rate 18 03/03/25 15:00 Blood Pressure 107/46 L 03/03/25 15:00 Pulse Oximetry 98 03/03/25 15:00 Oxygen Delivery Room Air 03/03/25 15:00 Temperature 97.9 F 03/03/25 15:00 Pulse Rate 79 03/03/25 16:00 Respiratory Rate 16 03/03/25 16:00 Blood Pressure 112/50 L 03/03/25 16:00 Pulse Oximetry 97 03/03/25 16:00 Oxygen Delivery Room Air 03/03/25 15:00 MDM - Abdominal Pain MDM Narrative Medical decision making narrative: Pt presents with LLQ pain since this morning. will get labs and CT to ruleout diverticulits vs colitis vs enteritis. doubt sbo. will give morphine and zofran. Pt has mild diverticulitis on CT will put on augmentin and a few norco. Lab Data 03/03/25 15:36 03/03/25 15:36 Labs: Lab Results 03/03/25 03/03/25 Range/Units 15:36 15:39 WBC 11.8 H (4.5-10.0) K/mm3 RBC 4.80 (4.2-5.4) M/mm3 Hgb 13.0 (12.0-15.0) g/dL Hct 41.5 (37.0-47.0) % MCV 86.5 (80-100) fl MCH 27.1 (26-34) pg MCHC 31.3 L (32-36) g/dl RDW 13.6 (11.5-14.5) % Plt Count 263 (150-375) k/mm3 MPV 9.3 (7.4-10.4) fl Immature Gran % (Auto) 0.3 (0-0.5) % Neut % (Auto) 63.8 (45.5-73.1) % Lymph % (Auto) 23.1 (18.3-44.2) % [place] % (Auto) 11.7 H (2.6-8.5) % Eos % (Auto) 0.8 (0-4.4) % Baso % (Auto) 0.3 (0.2-1.2) % Lymph # (Auto) 2.73 (0.9-3.2) K/mm3 [place] # (Auto) 1.4 H (0.1-0.6) K/mm3 Eos # (Auto) 0.1 (0-0.3) K/mm3 Baso # (Auto) 0.0 (0.0-0.1) K/mm3 Abs Immat Gran (auto) 0.04 H (0.00-0.031) K/mm3 Absolute Neuts (auto) 7.6 H (1.3-6.7) K/mm3 Absolute Nucleated RBC 0.000 (0.0-0.012) K/mm3 Nucleated RBC % 0.0 (0.0-0.2) % Sodium 137 (137-145) mmol/L Potassium 3.7 (3.4-5.0) mmol/L Chloride 105 (98-107) mmol/L Carbon Dioxide 25 (22-30) mmol/L Anion Gap 7 (4-12) mmol/L BUN 11 (7-17) mg/dL Creatinine 0.76 (0.7-1.0) mg/dL Estim Creat Clear Calc 129 ml/min Estimated GFR > 60 (59 - ) Glucose 106 (65-110) mg/dL Calcium 9.0 (8.4-10.2) mg/dL Total Bilirubin 0.6 (0.2-1.3) mg/dL AST 19 (14-36) U/L ALT 18 (6-35) U/L Alkaline Phosphatase 86 (38-126) U/L Total Protein 7.0 (6.3-8.2) g/dL Albumin 3.7 (3.5-5.1) g/dL Lipase 47 (23-300) U/L Urine Color Yellow (Yellow) Urine Appearance Clear (Clear) Urine pH 5.5 (5.0-9.0) Ur Specific [place] 1.020 (1.001-1.035) Urine Protein Negative (Negative) mg/dL Urine Glucose (UA) Negative (Negative) mg/dL Urine Ketones Negative (Negative) mg/dL Ur Blood (Man) Negative (Negative) Urine Nitrate Negative (Negative) Urine Bilirubin Negative (Negative) Urine Urobilinogen 0.2 (<2.0) mg/dL Leukocyte Esterase Rfl Negative (Negative) DORINA/UL POC Urine HCG, Qual Negative (Negative) Imaging Data Radiologist's impression: ITS Impressions Abdomen/Pelvis CT 03/03/25 16:24 IMPRESSION: 1. Radiographically uncomplicated diverticulitis at the distal descending colon. 2. Moderate-sized fat-containing umbilical hernia, couple additional small and moderate-sized fat-containing ventral hernias and small fat-containing left inguinal hernia. Discharge Plan Discharge Clinical Impression: Diverticulitis Patient Disposition: Home Condition: Stable Instructions: Antibiotic Form, Diverticulitis (DC) Patient Language: New Zealander Prescriptions: New amoxicillin-pot clavulanate 875-125 mg tablet 1 tablet PO Q12H Qty: 28 0RF hydrocodone-acetaminophen 5-325 mg tablet 1 tablet PO Q6H PRN (Reason: pain) Qty: 10 0RF No Action lisinopril 20 mg tablet 20 mg PO DAILY Qty: 30 11RF metoprolol succinate 25 mg tablet extended release 24 hr 25 mg PO DAILY Qty: 30 11RF trazodone 50 mg tablet 50 mg PO QHS Qty: 30 5RF Follow-up/Referrals: PHYSICIAN NOT ON STAFF,NONSTAFF [Non-Staff] -
[2025-03-03 15:44] LABS: Basophils Percent Auto 0.3 % (0.2-1.2); Eosinophils Absolute Auto 0.1 K/mm3 (0-0.3); Eosinophils Percent Auto 0.8 % (0-4.4); Hematocrit 41.5 % (37.0-47.0); Immature Granulocyte Absolute 0.04 K/mm3 (0.00-0.031); Immature Granulocyte Percent A 0.3 % (0-0.5); Lymphocytes Absolute Auto 2.73 K/mm3 (0.9-3.2); Lymphocytes Percent Auto 23.1 % (18.3-44.2); Mean Corpuscular HGB Conc 31.3 g/dl (32-36); Mean Corpuscular Hemoglobin 27.1 pg (26-34); Mean Corpuscular Volume 86.5 fl (80-100); Mean Platelet Volume 9.3 fl (7.4-10.4); Monocytes Absolute Auto 1.4 K/mm3 (0.1-0.6); Monocytes Percent Auto 11.7 % (2.6-8.5); Neutrophils Absolute Auto 7.6 K/mm3 (1.3-6.7); Neutrophils Percent Auto 63.8 % (45.5-73.1); Platelet Count Result 263 k/mm3 (150-375); Red Cell Distribution Width 13.6 % (11.5-14.5); White Blood Count 11.8 K/mm3 (4.5-10.0)
[2025-03-03 15:46] LABS: Add Urine Microscopic? NO; Appearance Urine Clear (Clear); Bilirubin Urine Negative (Negative); Blood Urine Negative (Negative); Color Urine Yellow (Yellow); Glucose Urine UA Negative (Negative); Ketones Urine Negative (Negative); Leukocyte Esterase Ur Negative LEU/UL (Negative); Nitrate Urine Negative (Negative); Protein Urine Negative (Negative); Urobilinogen Urine 0.2 mg/dL (<2.0); pH Urine 5.5 (5.0-9.0)
[2025-03-03 15:53] LABS: Alanine Aminotransferase 18 U/L (6-35); Albumin Level 3.7 g/dL (3.5-5.1); Alkaline Phosphatase 86 U/L (38-126); Anion Gap 7 mmol/L (4-12); Aspartate Amino Transferase 19 U/L (14-36); Bilirubin,Total 0.6 mg/dL (0.2-1.3); Blood Urea Nitrogen 11 mg/dL (7-17); Carbon Dioxide 25 mmol/L (22-30); Chloride 105 mmol/L (98-107); Estimated CRCL calculation 129 ml/min; Estimated Glomerular Filt Rate > 60; Glucose 106 mg/dL (65-110); Lipase 47 U/L (23-300); Potassium 3.7 mmol/L (3.4-5.0); Sodium 137 mmol/L (137-145)
[2025-03-03] MEDS: ONDANSETRON INJ 4 MG/2 ML VIAL IV PUSH (15:58)
[2025-03-03] MEDS: MORPHINE SULFATE (*CRX) 4 MG/ML INJ IV PUSH (15:58)
[2025-03-03 16:00] VITALS: BP 112/50; PULSE 79; RESP 16; O2SAT 97
--- OUTSIDE RECORDS SUMMARY | 2025-03-03 16:08 | XMS_ITS | Clinical Summary ---
Author Organization [facility] Address [address] [facility] [place] [address] Care Team Providers Care Checker/Stocker Name Role Phone Unavailable Primary Care Provider [...]
--- OUTSIDE RECORDS SUMMARY | 2025-03-03 16:08 | XMS_ITS | Referral Summary ---
Author Organization [facility] [address] Address [address] [place] [address] Care Team Providers Care Baker Chef Name Role Phone Addi Kemp MD Primary Care Provider [phone] Allergies No known active allergies Medications lisinopriL [...] on file Legal Sex Female 1:04 AM MUNICIPAL CLERK Gender Identity Not on file Sexual Orientation Not on file Last Filed Vital Signs Vital Sign Reading Time Taken Comments Blood Pressure 110/64 12/24/2019 9:57 AM MUNICIPAL CLERK Pulse 94 12/24/2019 9:57 AM MUNICIPAL CLERK Temperature 36.6 C (97.9 F) 05/07/2016 12:39 PM CDT Respiratory Rate - - Oxygen Saturation 97% 12/24/2019 9:57 AM MUNICIPAL CLERK Inhaled Oxygen Concentration - - Weight 171.9 kg (379 lb) 12/24/2019 9:57 AM MUNICIPAL CLERK Height 162.6 cm (5' 4 ) 12/24/2019 9:57 AM MUNICIPAL CLERK Body Mass Index 65.06 12/24/2019 9:57 AM MUNICIPAL CLERK Plan of Treatment Not on file Insurance [facility] H[facility]/PPO Address: [facility] [id number] [place] [address] Care Teams Baker Chef Relationship Specialty Start Date End Date Addi Kemp MD PCP - General Emergency Medicine 12/24/19
--- OUTSIDE RECORDS SUMMARY | 2025-03-03 16:08 | XMS_ITS | CONTINUITY OF CARE DOCUMENT ---
Author Name quangyeimi quangyeimi Address Unknown Organization [facility] Address [address] [place] [address] Phone [phone] Care Team Providers Care Service Person Name Role Phone Janes Land MD Unavailable [phone] FRANK MEDINA MD Unavailable [phone] FRANK MEDINA MD Unavailable [phone] PROBLEMS Condition Status Date Provider Notes Other [...] In-person encounter Office Visit Janes Land MD [place] [facility] SVT - In-person encounter Office Visit Janes Land MD [place] [facility] Other symptoms involving cardiovascular systemOSA - In-person encounter Office Visit Janes Land MD [place] [facility] Gallstones - In-person encounter Office Visit Janes Land MD [facility] PalpitationsMalignant essential hypertensionObesityPVC's VITAL SIGNS Date Observation Value Provider Body Mass Index (Ratio) 52.86 kg/m2 Kaleb gibbs Katie blood pressure, resting Yes Janes Land MD blood pressure, diastolic, left arm 97 mm [Hg] Maey Vicente blood pressure, systolic, left arm 152 mm [Hg] Maye Vicente blood pressure, diastolic, right arm 94 m m[Hg] Maye Vicente blood pressure, systolic, right arm 137 m m[Hg] Maye Vicente blood pressure, cuff size regular [place] shaheen Vicente blood pressure, diastolic 97 mm[Hg] [facility] blood pressure, systolic 152 mm[Hg] Rosalva gibbonsa Vicente oxygen saturation, oximetry 98 % [facility] respiratory rate E&M 16 /min [facility] pulse rate 57 /min [facility] weight E&M 308 [lb_av] [facility] height E&M 64 [in_i] [facility] blood pressure, diastolic, left arm 85 mm [Hg] [facility] blood pressure, systolic, left arm 138 mm [Hg] [facility] blood pressure, diastolic, right arm 97 m m[Hg] Maye Vicente blood pressure, systolic, right arm 130 m m[Hg] [facility] blood pressure, diastolic 85 mm[Hg] Tx shaheen Vicente blood pressure, systolic 138 mm[Hg] Rosalva yosef Vicente pulse rate 83 /min [facility] oxygen saturation, oximetry 98 % [facility] respiratory rate E&M 15 /min [facility] Body Mass Index (Ratio) 50.97 kg/m2 [facility] weight E&M 297 [lb_av] [facility] blood pressure, diastolic 92 mm[Hg] Ben Guan blood pressure, systolic 130 mm[Hg] Diana Guan Body Mass Index (Ratio) 52.18 kg/m2 Vivien Guan pulse rate 79 /min Viola arevalo oxygen saturation, oximetry 96 % Viola Guan respiratory rate E&M 18 /min Yokasta Guan weight E&M 304 [lb_av] Viola arevalo Body Mass Index (Ratio) 55.09 kg/m2 Anea chad [facility] blood pressure, diastolic, left arm 112 m m[Hg] Aneatris [facility] blood pressure, systolic, left arm 161 mm [Hg] Aneatris [facility] blood pressure, diastolic, right arm 108 mm[Hg] Aneatris [facility] blood pressure, systolic, right arm 156 m m[Hg] Aneatris [facility] blood pressure, diastolic 112 mm[Hg] An eatris [facility] blood pressure, systolic 161 mm[Hg] Ane atris [facility] pulse rate 94 /min Aneatris [facility] oxygen saturation, oximetry 98 % Aneatris [facility] respiratory rate E&M 17 /min Aneatri s [facility] weight E&M 321 [lb_av] Aneatris [facility] height E&M 64 [in_i] [facility] ALLERGIES No Known Drug Allergies HISTORY OF [...] Janes Land MD smoking status Never smoker Janes Meeks FAMILY HISTORY Family Member Condition Father Family History of Co ronary Artery Disease: Mother Family History of Co ronary Artery Disease: INSURANCE PROVIDERS Payer name Policy type / Coverage type [place] red libertarian ID CIGNA\[facility] [employer] [id number] TREATMENT PLAN Date Name Performer Cardiology:She state [...] tatus EKG Janes Land MD completed SNOMED-CT: [id number] Current Medications Documented Janes Land MD completed SNOMED-CT: [id number] Current Medications Documented Janes Land MD completed EKG Janes Land MD completed
--- OUTSIDE RECORDS SUMMARY | 2025-03-03 16:08 | XMS_ITS | Clinical Summary ---
Author Organization [facility] [address] Address [address] [place] [address] Care Team Providers Care Stave Bolt Equalizer Name Role Phone Addi Kemp MD Primary Care Provider [phone] Allergies No known active allergies Medications lisinopriL [...] on file Legal Sex Female 1:04 AM COTTON GINNER Gender Identity Not on file Sexual Orientation Not on file Obstetrics History Last Filed Vital Signs Vital Sign Reading Time Taken Comments Blood Pressure 110/64 12/24/2019 9:57 AM COTTON GINNER Pulse 94 12/24/2019 9:57 AM COTTON GINNER Temperature 36.6 C (97.9 F) 05/07/2016 12:39 PM CDT Respiratory Rate - - Oxygen Saturation 97% 12/24/2019 9:57 AM COTTON GINNER Inhaled Oxygen Concentration - - Weight 171.9 kg (379 lb) 12/24/2019 9:57 AM COTTON GINNER Height 162.6 cm (5' 4 ) 12/24/2019 9:57 AM COTTON GINNER Body Mass Index 65.06 12/24/2019 9:57 AM COTTON GINNER Plan of Treatment Not on file Insurance [employer] Care Teams Stave Bolt Equalizer Relationship Specialty Start Date End Date Addi Kemp MD PCP - General Emergency Medicine 12/24/19
[2025-03-03 17:23] VITALS: BP 115/80; PULSE 79; RESP 16; O2SAT 100
== END 2025-03-03 17:25 | disposition home or self-care (01) ==
PROVIDERS: Emergency Provider Emergency Medicine; PCP Family Medicine
DX: K57.32 Diverticulitis of large intestine without perforation or abscess without bleeding (principal); F32.A Depression, unspecified; G25.81 Restless legs syndrome; E78.5 Hyperlipidemia, unspecified; G47.30 Sleep apnea, unspecified; I10 Essential (primary) hypertension
CPT/HCPCS: 36415; 74177; 80053; 81003; 81025; 83690; 85025; 96374; 96375; 99284; J2270; J2405; Q9967

== ENCOUNTER 2025-10-05 12:08 | Outpatient (CLI) | payer BC, SELFPAY ==
--- NOTE | ~2025-10-05 | XR_ITS ---
EXAMINATION: XR knee RT min 4V, 10/05/2025 12:10 LEGAL ASSOCIATE HISTORY: M25.561 - Pain in right knee COMPARISON: No comparisons available. Findings: No acute fracture or malalignment. Moderate tricompartmental degenerative changes, small effusion Soft tissues unremarkable. Impression: No acute fracture or malalignment. Reviewed, dictated and finalized at location P. L ASSOCIATE Impression: No acute fracture or malalignment.
== END 2025-10-05 12:09 | disposition home or self-care (01) ==
PROVIDERS: PCP Nurse Practitioner Family; Visit Provider Nurse Practitioner Family
DX: M25.561 Pain in right knee (principal)
CPT/HCPCS: 73564